=== PATIENT | female | born 1990 | race Caucasian/White ===

== ENCOUNTER 2019-08-07 08:50 | Observation (INO) | payer OTHER ==
[~2019-08-07] VITALS: Ht 162.6 cm; Wt 72.7 kg
[2019-08-07 09:16] VITALS: BP 118/66
[2019-08-08] MEDS ORDERED: PREN1TAB60 PO (08:27)
[2019-08-08] MEDS ORDERED: SERT100T PO (08:27)
[2019-08-08] MEDS ORDERED: FAMO-79 PO (08:28)
== END 2019-08-08 10:15 | disposition home or self-care (01) ==
LOC: LDOP 08:50 → LDIP 09:50
PROVIDERS: ADMIT Obstetrics & Gynecology; ATTEND Obstetrics & Gynecology
DX: O26.852 Spotting complicating pregnancy, second trimester (principal); O99.342 Other mental disorders complicating pregnancy, second trimester; F32.9 Major depressive disorder, single episode, unspecified; O99.412 Diseases of the circulatory system complicating pregnancy, second trimester; I07.1 Rheumatic tricuspid insufficiency; Z3A.24 24 weeks gestation of pregnancy; Z79.899 Other long term (current) drug therapy
CPT/HCPCS: 76815; 82962; 89060; G0378; Q0114

== ENCOUNTER 2019-09-28 12:20 | Outpatient (CLI) | payer OTHER ==
[~2019-09-28] VITALS: Ht 165.1 cm; Wt 85.0 kg
[~2019-09-28 12:20] MED LIST: FAMO-79 PO; PREN1TAB60 PO; SERT100T PO
[2019-09-28 12:32] VITALS: BP 118/63
== END 2019-09-28 15:14 | disposition home or self-care (01) ==
LOC: LDOP 12:20
PROVIDERS: ATTEND Obstetrics & Gynecology
DX: O26.893 Other specified pregnancy related conditions, third trimester (principal); Z3A.31 31 weeks gestation of pregnancy; V89.2XXA Person injured in unspecified motor-vehicle accident, traffic, initial encounter; Y93.89 Activity, other specified; Y92.89 Other specified places as the place of occurrence of the external cause; Y99.8 Other external cause status
CPT/HCPCS: 59025; 99211; G0463

== ENCOUNTER 2019-11-21 04:16 | Inpatient (IN) | payer OTHER ==
[~2019-11-21] VITALS: Ht 165.1 cm; Wt 88.0 kg
[2019-11-21] MEDS ORDERED: NEWBORN KIT ONE (06:11)
[2019-11-21] MEDS ORDERED: LIDOCAINE 1%, 20ML ONE ×2 (06:11→08:47)
[2019-11-21] MEDS ORDERED: MISOPROSTOL 200 MCG TABLET ONE (06:12)
[2019-11-21] MEDS ORDERED: OXYTOCIN 30U/ 0.9% NaCL 500ML 500 ML ONE ×2 (06:12→14:22)
[2019-11-21] MEDS ORDERED: D5%-LACTATED RINGERS 1,000 ML IV SCH (06:15)
[2019-11-21] MEDS ORDERED: OXYTOCIN 30U/ 0.9% NaCL 500ML 500 ML IV PRN (06:15)
[2019-11-21] MEDS ORDERED: OXYTOCIN 30U/ 0.9% NaCL 500ML 500 ML IV ONE (06:15)
[2019-11-21] MEDS ORDERED: TERBUTALINE 1 MG/ML, 1ML SQ PRN (06:30)
[2019-11-21] MEDS ORDERED: CALCIUM CARBONATE 500 MG TAB.CHEW PO PRN (06:30)
[2019-11-21] MEDS ORDERED: TERBUTALINE 1 MG/ML, 1ML IVPush PRN (06:30)
[2019-11-21] MEDS ORDERED: FENTANYL PF 100 MCG/2ML IVPush PRN (06:30)
[2019-11-21] MEDS ORDERED: PLEASE ENTER HEIGHT AND WEIGHT MC SCH (06:30)
[2019-11-21] MEDS ORDERED: FENTANYL PF 100 MCG/2ML IV PRN (06:30)
[2019-11-21] MEDS ORDERED: MISOPROSTOL 25 MCG TABLET VG PRN (06:30)
[2019-11-21] MEDS ORDERED: ONDANSETRON 2MG/ML, 2ML IVPush PRN (06:30)
[2019-11-21] MEDS: LACTATED RINGERS 1,000 ML IV SCH ×2 (06:40→08:00)
[2019-11-21 07:12] LABS: BASOPHILS # (AUTO) 0.01 x10^3/uL (0-0.1); BASOPHILS % (AUTO) 0 % (0-1); EOSINOPHILS # (AUTO) 0.03 x10^3/uL (0-0.4); EOSINOPHILS % (AUTO) 0 % (1-7); LYMPHOCYTES # (AUTO) 1.61 x10^3/uL (1-3.4); LYMPHOCYTES % (AUTO) 18 % (22-44); MD NO; MEAN CORPUSCULAR HGB CONC 31.8 g/dL (32.4-35.8); MEAN CORPUSCULAR VOLUME 72.3 fL (80-100); MEAN PLATELET VOLUME 9.4 fL (7.4-10.4); MONOCYTES % (AUTO) 8 % (2-9); NEUTROPHILS # (AUTO) 6.52 x10^3/uL (1.8-6.8); NEUTROPHILS % (AUTO) 74 % (42-75); PLATELET COUNT 233 x10^3/uL (130-400); RED BLOOD COUNT 4.09 x10^6/uL (3.82-5.3); RED CELL DISTRIBUTION WIDTH 18.4 % (9.6-15.2)
[2019-11-21] MEDS ORDERED: FENTANYL/BUPIV./NS/PF 250 ML EPIDCONT SCH (07:24)
[2019-11-21] MEDS ORDERED: LACTATED RINGERS 1,000 ML IV SCH (07:24)
[2019-11-21] MEDS ORDERED: EPHEDRINE 50 MG/ML, 1ML IVPush PRN (07:30)
[2019-11-21] MEDS ORDERED: LACTATED RINGERS 1,000 ML IVBOLUS PRN (07:30)
[2019-11-21] MEDS ORDERED: FENTANYL PF 500 MCG, BUPIVACAINE/PF 0.5%, 30ML 62.5 ML in SODIUM CHLORIDE 0.9% 177.5 ML EPIDCONT SCH (08:00)
[2019-11-21] MEDS ORDERED: BUPIVACAINE 0.25% ONE ×2 (08:20→08:47)
[2019-11-21] MEDS ORDERED: FENTANYL/BUPIV./NS/PF 250 ML EPIDCONT ONE (08:47)
[2019-11-21] MEDS ORDERED: LIDOCAINE/PF 1.5%-EPI 1:200K, 30ML ONE (08:47)
[2019-11-21] MEDS ORDERED: IBUPROFEN 600 MG TABLET ONE (14:22)
[2019-11-21] MEDS: OXYTOCIN 30U/ 0.9% NaCL 500ML 500 ML IV SCH (14:22)
[2019-11-21] MEDS: IBUPROFEN 600 MG TABLET PO PRN ×2 (14:28→20:46)
[2019-11-21] MEDS ORDERED: ONDANSETRON 2MG/ML, 2ML IV PRN (14:30)
[2019-11-21] MEDS ORDERED: MISOPROSTOL 200 MCG TABLET PO PRN (14:30)
[2019-11-21] MEDS ORDERED: SIMETHICONE 80 MG CHEW TAB PO PRN (14:30)
[2019-11-21] MEDS ORDERED: OXYcodone/APAP 5/325MG TABLET PO PRN ×2 (14:30)
[2019-11-21 16:10] VITALS: BP 112/64
[2019-11-21] MEDS ORDERED: DIPH,PERTUSS(ACELL),TET VAC/PF NC IM-VACC ONE (19:42)
[2019-11-21 20:00] VITALS: BP 121/63
[2019-11-21] MEDS: DOCUSATE 100 MG CAPSULE PO PRN (20:46)
[2019-11-21 22:16] LABS: BASOPHILS % (AUTO) 0 % (0-1); EOSINOPHILS # (AUTO) 0.02 x10^3/uL (0-0.4); EOSINOPHILS % (AUTO) 0 % (1-7); LYMPHOCYTES # (AUTO) 1.49 x10^3/uL (1-3.4); LYMPHOCYTES % (AUTO) 12 % (22-44); MD NO; MEAN CORPUSCULAR HEMOGLOBIN 23.1 pg (27.0-34.8); MEAN CORPUSCULAR HGB CONC 31.9 g/dL (32.4-35.8); MEAN CORPUSCULAR VOLUME 72.5 fL (80-100); MEAN PLATELET VOLUME 9.5 fL (7.4-10.4); MONOCYTES # (AUTO) 0.72 x10^3/uL (0.2-0.8); MONOCYTES % (AUTO) 6 % (2-9); NEUTROPHILS # (AUTO) 10.53 x10^3/uL (1.8-6.8); NEUTROPHILS % (AUTO) 83 % (42-75); PLATELET COUNT 223 x10^3/uL (130-400); RED BLOOD COUNT 3.96 x10^6/uL (3.82-5.3); RED CELL DISTRIBUTION WIDTH 18.2 % (9.6-15.2)
[2019-11-22] VITALS: BP 114/74
[2019-11-22] MEDS: OXYTOCIN 30U/ 0.9% NaCL 500ML 500 ML IV SCH (00:06)
[2019-11-22 04:00] VITALS: BP 116/71
[2019-11-22] MEDS: IBUPROFEN 600 MG TABLET PO PRN ×3 (04:55→15:19)
[2019-11-22 07:05] VITALS: BP 123/75
[2019-11-22] MEDS ORDERED: PRENATAL VIT/IRON/FA 1 EACH TABLET PO SCH (09:00)
[2019-11-22] MEDS: DOCUSATE 100 MG CAPSULE PO PRN (09:14)
[2019-11-22] MEDS ORDERED: IBUP-1222 PO (11:38)
[2019-11-22 12:10] VITALS: BP 112/73
== END 2019-11-22 16:35 | disposition home or self-care (01) | DRG 807 ==
LOC: LDIP 06:14 → 2NW 16:00
PROVIDERS: ADMIT Obstetrics & Gynecology; ATTEND Obstetrics & Gynecology
PROC: 10E0XZZ Delivery of Products of Conception, External Approach (ICD-10-PCS; principal; 2019-11-21)
PROC: 0KQM0ZZ Repair Perineum Muscle, Open Approach (ICD-10-PCS; 2019-11-21)
PROC: 3E0R3BZ Introduction of Anesthetic Agent into Spinal Canal, Percutaneous Approach (ICD-10-PCS; 2019-11-21)
PROC: 00HU33Z Insertion of Infusion Device into Spinal Canal, Percutaneous Approach (ICD-10-PCS; 2019-11-21)
DX: O69.81X0 Labor and delivery complicated by cord around neck, without compression, not applicable or unspecified (principal); Z37.0 Single live birth; F32.9 Major depressive disorder, single episode, unspecified; O70.1 Second degree perineal laceration during delivery; O99.344 Other mental disorders complicating childbirth; Z3A.39 39 weeks gestation of pregnancy; Z79.899 Other long term (current) drug therapy; Z80.3 Family history of malignant neoplasm of breast; Z82.49 Family history of ischemic heart disease and other diseases of the circulatory system
CPT/HCPCS: 36415; J3490; S0020; 85025; 86592; 86850; 86900; G0378; J3010; J2590; J7050; J7120